=== PATIENT | male | born 1960 | race Caucasian/White ===

== ENCOUNTER 2016-10-17 11:31 | Outpatient (CLI) | payer OTHER ==
[~2016-10-17] VITALS: Ht 170.2 cm; Wt 79.5 kg
[2016-10-17 11:50] VITALS: BP 128/65; PULSE 76; RESP 16; Ht 170.2 cm; Wt 79.5 kg
[2016-10-17] MEDS ORDERED: ISOS30TA5 PO (11:57)
[2016-10-17] MEDS ORDERED: LANT3I SC (11:57)
[2016-10-17] MEDS ORDERED: CLOP75TA27 PO (11:57)
[2016-10-17] MEDS ORDERED: ATOR80TA75 PO (11:57)
[2016-10-17] MEDS ORDERED: ASPI-664 PO (11:57)
[2016-10-17] MEDS ORDERED: METO-448 PO (11:57)
[2016-10-17] MEDS ORDERED: INSU100C3 SQ (11:57)
--- NOTE | 2016-10-24 16:59 | PN ---
Date/Time of Note Date/Time of Note DATE: 10/17/16 TIME: 11:57 Outpatient Progress Note Chief Complaint ASHD/MN/diabetes/hypertension/hyperlipidemia HPI ASHD/no chest pain, no PND orthopnea or palpitation, patient was recently admitted for above problem, MN/patient did have non-ST MN, patient denies any chest pain, patient had a cardiac catheter, and patient was advised surgery, patient left AMA, after explaining that patient can have sudden , at present patient feels comfortable, Diabetes/no previous a polyuria hypoglycemia, gastroparesis, Hypertension/no headache or dizziness or lightheadedness, Hyperlipidemia/no xanthoma, on medication, side effect, Review of Systems Const: No Fever, no chills, no Wt. loss, no Fatigue, normal appetite, no diaphoresis. Eyes: No pain, no discharge, no redness, no visual change, no foreign body. ENT: No pain, no bleeding, no congestion, no sore throat, no dysphagia, no discharge or rhinitis. Lymph: No adenopathy, no tender nodes, no lymphedema Resp:No SOB, no cough, no sputum, no wheezing, no chest pain CV:No chest pain, no palpitaions, no GRAMAJO, no PND, no edema GI:Normal appetite, no pain, no nausea, no vomiting, no diarrhea, no blood, no constipation :No frequency, no urgency, no dysuria, no hematuria, no flank pain, no discharge, no bleeding Musc:No bone/joint pain, no back pain, no neck pain, no knee pain, no restricted ROM Skin:No rash, no skin lesions, no erythema, no laceration, no bruising, no pruritus Neuro:No JACKSON, no dizziness, no syncope, no seizure, no focal-weakness Endo:No polyuria, no polydypsia, no dry-skin, no temp-intolerance Psych:No hallucinations, no depression, no anxiety, no suicidal ideation Ext:No edema, no pain, no ulcer, no weakness Physical Exam General Appearance: A 56year-oldmalwho appears well-developed, well-nourished, in no acute distress HEENT:Head normocephalic, atraumatic. Pupils equal, round, reactive to light and accommodate. Sclerae are no jaundice. Nasal turbinates pink without erythema or nasal discharge. Mucous membranes pink and moist without lesions. Oropharynx clear without any exudate or discharge NECK:Supple. Trachea midline, No thyromegaly, No cervical lymphadenopathy, No mass, No carotid bruits, No JVD, Carotid pulses 2+ bilaterally PULMONARY:Clear to auscultaion bilaterally, No retractions, Chest expansion symmetric bilaterally, no rales, no ronchi, no dulness on percussion CARDIAC:Normal SI and S2, Regular rate and rythm, no murmur, gallop, or rub GASTROINTESTINAL:Abdomen is soft, non-tender, Non Rigid, No distention, Positive bowel sounds x4 quadrants, Liver normal SKIN:Warm, dry, no rash, no bruise, no echmosis EXTREMITIES:Bilateral lower extremities normal, no edema, no phlabitus, pulse palpable, no contracture MUSCULOSKELETAL:Spine Normal, Non-tender, Normal range of motion, No swelling, no deformity, no clubbing, or cyanosis, the patient has no edema to bilateral lower extremities, dorsalis pedis pulses palpable bilaterally NEUROLOGIC:The patient is awake, alert, oriented, responding to yes/no questions appropriately, moving all extremities, cranial nerve intact, normal strenght, normal power, normal coordination, normal gait Allergies Coded Allergies: No Known Drug Allergies (Verified Allergy, Unknown, 10/17/16) PMH MN/ASHD/diabetes/hypertension/hyperlipidemia Social Hx No smoking, no drinking at present, no drugs, Family Hx Noncontributory Assessment/Plan Impression Recent non-ST MN/ASHD/diabetes/hypertension/hyperlipidemia Plan Patient education done about medical disease, diabetes hypertension acute MN, patient has very high risk for complication, patient very high risk for sudden patient need surgery, patient also explained even with the surgery patient very high risk, patient follow the recommendation of the cardiothoracic surgeon, patient advised to go to emergency room immediately or call 911, Patient has all his medication, patient also given education about controlling the blood pressure and sugar, patient also advised to continue follow sliding scale, and get surgery done whenever he prefers to, patient had signed AGAINST MEDICAL ADVICE from the hospital, Patient requested to follow with the primary care physician, and if any emergencies call 911 go to go to the ER, patient understands the risk very well , if patient does not do anything may have cardiac arrest and , patient mentally capable of making decision, Medications Home Meds Reported Medications Insulin Glargine* (Lantus*) 100 Unit/Ml Soln, 36 UNIT SC QHS, #1 VIAL 10/17/16 Insulin Aspart (Novolog) 100 Unit/1 Ml Cartridge, 12 UNIT SQ TID 10/17/16 Clopidogrel Bisulfate (Clopidogrel) 75 Mg Tablet, 75 MG PO DAILY, #30 TAB 10/17/16 Metoprolol Tartrate* (Lopressor*) 25 Mg Tab, 25 MG PO DAILY, #60 TAB 10/17/16 Aspirin (Low Dose Aspirin) 81 Mg Tablet.dr, 81 MG PO DAILY, #30 TAB 10/17/16 Isosorbide Mononitrate* (Isosorbide Mononitrate*) 30 Mg Tab.er.24h, 30 MG PO DAILY, TAB 10/17/16 Atorvastatin* (Atorvastatin*) 80 Mg Tablet, 80 MG PO QHS, #30 TAB 10/17/16 GLORIA CHRISTIAN MD Oct 17, 2016 12:07
== END 2016-10-17 16:09 | disposition home or self-care (01) ==
LOC: DCC 11:31
PROVIDERS: ATTEND Internal Medicine
DX: I21.4 Non-ST elevation (NSTEMI) myocardial infarction (principal); I25.10 Atherosclerotic heart disease of native coronary artery without angina pectoris; E11.9 Type 2 diabetes mellitus without complications; I10 Essential (primary) hypertension; E78.5 Hyperlipidemia, unspecified; Z79.82 Long term (current) use of aspirin
CPT/HCPCS: G0463

== ENCOUNTER 2016-10-31 10:50 | Outpatient (CLI) | payer OTHER ==
[~2016-10-31] VITALS: Ht 170.2 cm; Wt 77.7 kg
[~2016-10-31 10:50] MED LIST: ASPI-664 PO; ATOR80TA75 PO; CLOP75TA27 PO; INSU100C3 SQ; ISOS30TA5 PO; LANT3I SC; METO-448 PO
[2016-10-31 11:10] VITALS: BP 131/65; PULSE 74; RESP 16; Ht 170.2 cm; Wt 77.7 kg
--- NOTE | 2016-10-31 11:34 | PN ---
Date/Time of Note Date/Time of Note DATE: 10/31/16 TIME: 11:34 Outpatient Progress Note Chief Complaint Diabetes/hypertension/ASHD/hyperlipidemia HPI Diabetes/no polydipsia polyuria hypoglycemia, gastroparesis, patient blood sugar still elevated, slightly better than before, it is below 150 most of time, Hypertension/no headache or dizziness, no lightheadedness, no local focal weakness, ASHD, no chest pain, no PND orthopnea, no lightheadedness, patient was seen by manager transportation, Hyperlipidemia/no xanthoma, on medication, side effect, Review of Systems Const: No Fever, no chills, no Wt. loss, no Fatigue, normal appetite, no diaphoresis. Eyes: No pain, no discharge, no redness, no visual change, no foreign body. ENT: No pain, no bleeding, no congestion, no sore throat, no dysphagia, no discharge or rhinitis. Lymph: No adenopathy, no tender nodes, no lymphedema. Resp: No SOB, no cough, no sputum, no wheezing, no chest pain. CV: No chest pain, no palpitaions, no GRAMAJO, no PND, no edema. GI: Normal appetite, no pain, no nausea, no vomiting, no diarrhea, no blood, no constipation. : No frequency, no urgency, no dysuria, no hematuria, no flank pain, no discharge, no bleeding. Musc: No bone/joint pain, no back pain, no neck pain, no knee pain, no restricted ROM. Skin: No rash, no skin lesions, no erythema, no laceration, no bruising, no pruritus. Neuro: No JACKSON, no dizziness, no syncope, no seizure, no focal-weakness. Endo: No polyuria, no polydypsia, no dry-skin, no temp-intolerance. Psych: No hallucinations, no depression, no anxiety, no suicidal ideation. Ext: No edema, no pain, no ulcer, no weakness. Physical Exam Vital Signs Date Time Temp Pulse Resp B/P Pulse Ox O2 Delivery O2 Flow Rate FiO2 10/31/16 11:10 98.0 74 16 131/65 96 Room Air General Appearance: A 56 year-old female who appears well-developed, well- nourished, in no acute distress. HEENT: Head normocephalic, atraumatic. Pupils equal, round, reactive to light and accommodate. Sclerae are no jaundice. Nasal turbinates pink without erythema or nasal discharge. Mucous membranes pink and moist without lesions. Oropharynx clear without any exudate or discharge. NECK: Supple. Trachea midline, No thyromegaly, No cervical lymphadenopathy, No mass, No carotid bruits, No JVD, Carotid pulses 2+ bilaterally. PULMONARY: Clear to auscultaion bilaterally, No retractions, Chest expansion symmetric bilaterally, no rales, no ronchi, no dulness on percussion. CARDIAC: Normal SI and S2, Regular rate and rythm, no murmur, gallop, or rub. GASTROINTESTINAL: Abdomen is soft, non-tender, Non Rigid, No distention, Positive bowel sounds x4 quadrants, Liver normal. SKIN: Warm, dry, no rash, no bruise, no echmosis. EXTREMITIES: Bilateral lower extremities normal, no edema, no phlabitus, pulse palpable, no contracture. MUSCULOSKELETAL: Spine Normal, Non-tender, Normal range of motion, No swelling, no deformity, no clubbing, or cyanosis, the patient has no edema to bilateral lower extremities, dorsalis pedis pulses palpable bilaterally. NEUROLOGIC: The patient is awake, alert, oriented, responding to yes/no questions appropriately, moving all extremities, cranial nerve intact, normal strenght, normal power, normal coordination, normal gait. Allergies Coded Allergies: No Known Drug Allergies (Verified Allergy, Unknown, 10/17/16) PMH No change Social Hx No change Family Hx Reviewed and no change Assessment/Plan Impression Diabetes/hypertension/ASHD/status post CA/hyperlipidemia/ Plan Patient blood pressure and blood sugar reviewed, blood sugar still elevated, patient is taking 40 units of Lantus, increase Lantus to 43 units daily, discuss about hypoglycemia, patient was for hypoglycemia, patient education done about diabetes and hypertension, Running out of the medication, patient will have one month refill of all medication, Increase activity slowly, control the diet, control the blood pressure, controlled awake, control the sugar, Encouraged to see primary care physician, manager transportation, Patient had slightly elevated TSH, do not have results, discussed with the patient to follow with primary care physician, Medications Home Meds Reported Medications Insulin Glargine* (Lantus*) 100 Unit/Ml Soln, 36 UNIT SC QHS, #1 VIAL 10/17/16 Insulin Aspart (Novolog) 100 Unit/1 Ml Cartridge, 12 UNIT SQ TID 10/17/16 Clopidogrel Bisulfate (Clopidogrel) 75 Mg Tablet, 75 MG PO DAILY, #30 TAB 10/17/16 Metoprolol Tartrate* (Lopressor*) 25 Mg Tab, 25 MG PO DAILY, #60 TAB 10/17/16 Aspirin (Low Dose Aspirin) 81 Mg Tablet.dr, 81 MG PO DAILY, #30 TAB 10/17/16 Isosorbide Mononitrate* (Isosorbide Mononitrate*) 30 Mg Tab.er.24h, 30 MG PO DAILY, TAB 10/17/16 Atorvastatin* (Atorvastatin*) 80 Mg Tablet, 80 MG PO QHS, #30 TAB 10/17/16 GLORIA CHRISTIAN MD Oct 31, 2016 11:34
== END 2016-10-31 16:43 | disposition home or self-care (01) ==
LOC: DCC 10:50 → EDSEX 10:50 → DCC 16:43
PROVIDERS: ATTEND Internal Medicine
DX: E11.9 Type 2 diabetes mellitus without complications (principal); I10 Essential (primary) hypertension; I25.10 Atherosclerotic heart disease of native coronary artery without angina pectoris; I25.2 Old myocardial infarction; E78.5 Hyperlipidemia, unspecified
CPT/HCPCS: G0463